=== PATIENT | female | born 1980 | race Caucasian/White ===

== ENCOUNTER 2023-08-08 09:07 | Inpatient (IN) | payer OTHER ==
[2023-08-08] VITALS (15 sets, daily range): BP systolic 98–141; BP diastolic 64–77
[~2023-08-08] VITALS: Ht 165.1 cm; Wt 128.0 kg
[~2023-08-08 09:07] MED LIST: CETI5 PO; LEVSOD100; NAPR220 PO; PSEU120ER PO
[2023-08-08 10:09] LABS: BASOPHILS ABSOLUTE AUTO 0.06 K/mm3 (0.00-0.23); BASOPHILS PERCENT AUTO 0 % (0-2); EOSINOPHILS ABSOLUTE AUTO 0.02 K/mm3 (0.00-0.68); EOSINOPHILS PERCENT AUTO 0 % (0-6); Hemoglobin 8.9 g/dL (11.5-16.0); IMMATURE GRAN ABSOLUTE AUTO 0.45 K/mm3 (0.00-0.10); IMMATURE GRAN PERCENT AUTO 3 % (0-1); LYMPHOCYTES ABSOLUTE AUTO 0.53 K/mm3 (0.84-5.20); LYMPHOCYTES PERCENT AUTO 3 % (21-46); MONOCYTES ABSOLUTE AUTO 1.17 K/mm3 (0.16-1.47); MONOCYTES PERCENT AUTO 6 % (4-13); Mean Corpuscular HGB 31.8 pg (26.0-34.0); Mean Corpuscular Volume 96 fL (80-100); Mean Platelet Volume 9.3 fL (9.1-12.4); NEUTROPHILS ABSOLUTE AUTO 16.03 K/mm3 (1.96-9.15); NEUTROPHILS PERCENT AUTO 88 % (41-73); Platelet Count 181 K/mm3 (150-400); RDW Coefficient Variation 19.6 % (11.7-14.2); RDW Standard Deviation 69.1 fL (35.1-46.3); White Blood Cell Count 18.26 K/mm3 (4.00-11.30)
[2023-08-08 10:43] LABS: Albumin/Globulin Ratio 0.9 (0.8-1.8); Bilirubin, Total 0.4 mg/dL (0.1-1.0); Calcium, Blood 8.7 mg/dL (8.5-10.1); Creatinine, Blood 10.8 mg/dL (0.40-1.00); Globulin, Blood 3.5 g/dL (2.2-4.0); Potassium, Blood 4.4 mmol/L (3.5-5.5); Total Protein, Blood 6.5 g/dL (6.4-8.2)
[2023-08-08 10:47] LABS: Influenza A, PCR NEGATIVE (NEGATIVE); Influenza B, PCR NEGATIVE (NEGATIVE); Resp Syncytial Virus, PCR NEGATIVE (NEGATIVE); SARS-Cov-2 (COVID-19) PCR, MMC NEGATIVE (NEGATIVE)
[2023-08-08 14:23] LABS: Adenovirus Not Detected (NOT DETECT); Coronavirus 229E Not Detected (NOT DETECT); Coronavirus HKU1 Not Detected (NOT DETECT); Coronavirus NL63 Not Detected (NOT DETECT)
[2023-08-08 14:24] LABS: Bordetella pertussis Not Detected (NOT DETECT); Chlamydophila pneumoniae Not Detected (NOT DETECT); Coronavirus OC43 Not Detected (NOT DETECT); Human Metapneumovirus Not Detected (NOT DETECT); Human Rhinovirus/Enterovirus Not Detected (NOT DETECT); Influenza A/2009-H1 Not Detected (NOT DETECT); Influenza A/H1 Not Detected (NOT DETECT); Influenza A/H3 Not Detected (NOT DETECT); Influenza B Not Detected (NOT DETECT); Mycoplasma pneumoniae Not Detected (NOT DETECT); Parainfluenza Virus 1 Not Detected (NOT DETECT); Parainfluenza Virus 2 Not Detected (NOT DETECT); Parainfluenza Virus 3 Not Detected (NOT DETECT); Parainfluenza Virus 4 Not Detected (NOT DETECT); Respiratory Syncytial Virus Not Detected (NOT DETECT); SARS-Cov-2 (COVID-19), BioFire Not Detected (NOT DETECT)
[2023-08-08] MEDS ORDERED: Prednisone10 MG PO (14:32)
[2023-08-08] MEDS ORDERED: SEVEC800 PO (18:36)
[2023-08-09 04:07] VITALS: BP 136/92
--- NOTE | 2023-08-09 04:38 | NUR ---
END OF SHIFT SUMMARY PT CALM AND COOPERATIVE WITH CARE PROVIDED. PT A&O x4. AT THE BEGINNING OF NOC SHIFT, PT'S TEMP WAS 102.0; PRN APAP GIVEN FOR FEVER AND MAY. HOURLY ROUNDING COMPLETED ON PT. PT SLEPT FOR THE MOST OF THE SHIFT. PT ON 2L OF OXYGEN VIA NC. NO SIGNS OF RESP DISTRESS, BREATHES ARE EVEN AND UNLABORED. PT UP AD CARRINGTON IN ROOM, VERY INDEPENDENT WITH ADL's. PT ABLE TO MAKE NEEDS KNOWN. CALL LIGHT WITHIN REACH, WCTM. 0407: PT'S TEMPERATURE WAS 97.5.
[2023-08-09 05:37] LABS: Hematocrit 25.2 % (33.0-51.0); Hemoglobin 8.2 g/dL (11.5-16.0); Mean Corpuscular HGB 31.9 pg (26.0-34.0); Mean Corpuscular HGB Conc 32.5 g/dL (31.5-36.5); Mean Corpuscular Volume 98 fL (80-100); Mean Platelet Volume 9.8 fL (9.1-12.4); Platelet Count 169 K/mm3 (150-400); RDW Coefficient Variation 19.7 % (11.7-14.2); RDW Standard Deviation 70.8 fL (35.1-46.3); Red Blood Cell Count 2.57 M/mm3 (3.80-5.20)
[2023-08-09 06:01] LABS: Albumin, Blood 2.6 g/dL (3.4-5.0); Anion Gap 5 mmol/L (6-16); Blood Urea Nitrogen 40 mg/dL (8-24); Bun/Creatinine Ratio 5.2 (12.0-20.0); CO2, Blood 29 mmol/L (21-32); Calcium, Blood 8.6 mg/dL (8.5-10.1); Chloride, Blood 100 mmol/L (98-108); Creatinine, Blood 7.76 mg/dL (0.40-1.00); Glomerular Filtration Rate 6 (60-); Glucose, Blood 133 mg/dL (70-99); Phosphorus, Blood 4.7 mg/dL (2.5-4.9); Potassium, Blood 4.4 mmol/L (3.5-5.5); Sodium, Blood 134 mmol/L (136-145)
[2023-08-09 06:47] LABS: BASOPHILS PERCENT MAN 0 % (0-2); EOSINOPHILS PERCENT MAN 0 % (0-6); LYMPHOCYTES ABSOLUTE MAN 0.82 K/mm3 (0.84-5.20); LYMPHOCYTES PERCENT MAN 6 % (21-46); METAMYELOCYTE ABSOLUTE MAN 0.13 K/mm3 (0.00-0.00); METAMYELOCYTE PERCENT MAN 1 % (0-0); MONOCYTES ABSOLUTE MAN 0.27 K/mm3 (0.16-1.47); MONOCYTES PERCENT MAN 2 % (4-13); NEUTROPHILS ABSOLUTE MAN 12.55 K/mm3 (1.96-9.15); SEG NEUTROPHILS PERCENT MAN 91 % (41-73); TOTAL CELLS COUNTED 100
[2023-08-09 07:09] VITALS: BP 127/89
[2023-08-09 15:07] LABS: Albumin, Blood 2.8 g/dL (3.4-5.0); Anion Gap 6 mmol/L (6-16); Blood Urea Nitrogen 48 mg/dL (8-24); Bun/Creatinine Ratio 5.7 (12.0-20.0); CO2, Blood 29 mmol/L (21-32); Calcium, Blood 9.1 mg/dL (8.5-10.1); Chloride, Blood 98 mmol/L (98-108); Creatinine, Blood 8.49 mg/dL (0.40-1.00); Glomerular Filtration Rate 6 (60-); Glucose, Blood 142 mg/dL (70-99); Phosphorus, Blood 4.4 mg/dL (2.5-4.9); Potassium, Blood 4.3 mmol/L (3.5-5.5); Sodium, Blood 133 mmol/L (136-145)
[2023-08-09 15:37] VITALS: BP 133/69
--- NOTE | 2023-08-09 16:27 | NUR ---
DAYSHIFT SUMMARY Patient alert & oriented x4, independent in the room. Afebrile this shift, denies N/V/D, and chills. Lab notified RN of positive blood culture- gram + cocci clusters. Notifed Hospitalist & Dr. Campos. Beth stated patient recently had immune modulation therapy and required gram - coverage. Vancomycin & Rocephin IV started this shift. Orders to collect blood cultures from permacath. Unable to obtain sample this shift, will consult with dialysis nurse to collect sample from permacath. Patient reports anuria, small-unmeasured void this am, unable to collect urine for UA culture. Telemetry in place, NSR. No cardiac events this shift. Vitals stable. Will continue plan of care.
[2023-08-09 20:40] VITALS: BP 127/78
[2023-08-10] VITALS (20 sets, daily range): BP systolic 124–172; BP diastolic 68–96
--- NOTE | 2023-08-10 04:34 | NUR ---
END OF SHIFT SUMMARY PT A&O x4. PT KIND AND PLEASANT, COOPERATIVE WITH CARE PROVIDED. BP STABILIZED, AFEBRILE. PT ENCOURAGED TO PUSH FLUIDS, STILL NEED A URINE SAMPLE. DYSURIA PRESENT, PT VOIDED VERY SMALL AMOUNT OF URINE WHICH HAD A RED TINT IN COLOR, NOT ENOUGH FOR A UA. PT WILL CONTINUE TO TRY TO SUPPLY A SAMPLE. PT ON TELEMETRY SINUS RHYTHM IN THE 80'S. PT UP AD CARR[place], INDEPENDENT WITH ALL ADL's. WE NEED A NEW BLOOD CULTURE. PT ABLE TO MAKE NEEDS KNOWN. PT FEELING BETTER, SLEPT WELL OVERNIGHT. CALL LIGHT WITHIN REACH, WCTM.
[2023-08-10 05:35] LABS: BASOPHILS ABSOLUTE AUTO 0.04 K/mm3 (0.00-0.23); BASOPHILS PERCENT AUTO 1 % (0-2); EOSINOPHILS ABSOLUTE AUTO 0.12 K/mm3 (0.00-0.68); EOSINOPHILS PERCENT AUTO 2 % (0-6); Hematocrit 25.3 % (33.0-51.0); Hemoglobin 8.2 g/dL (11.5-16.0); IMMATURE GRAN ABSOLUTE AUTO 0.12 K/mm3 (0.00-0.10); IMMATURE GRAN PERCENT AUTO 2 % (0-1); LYMPHOCYTES ABSOLUTE AUTO 0.87 K/mm3 (0.84-5.20); LYMPHOCYTES PERCENT AUTO 11 % (21-46); MONOCYTES ABSOLUTE AUTO 0.91 K/mm3 (0.16-1.47); MONOCYTES PERCENT AUTO 11 % (4-13); Mean Corpuscular HGB 31.5 pg (26.0-34.0); Mean Corpuscular HGB Conc 32.4 g/dL (31.5-36.5); Mean Corpuscular Volume 97 fL (80-100); Mean Platelet Volume 9.8 fL (9.1-12.4); NEUTROPHILS PERCENT AUTO 75 % (41-73); Platelet Count 157 K/mm3 (150-400); RDW Coefficient Variation 19.2 % (11.7-14.2); RDW Standard Deviation 68.8 fL (35.1-46.3); White Blood Cell Count 8.16 K/mm3 (4.00-11.30)
[2023-08-10 06:03] LABS: Iron Serum 78 ug/dL (50-170); Percent Saturation 44.6 % (15.0-50.0); Total Iron Binding Capacity 175 ug/dL (250-450)
[2023-08-10 06:15] LABS: Albumin, Blood 2.7 g/dL (3.4-5.0); Anion Gap 11 mmol/L (6-16); Blood Urea Nitrogen 63 mg/dL (8-24); Bun/Creatinine Ratio 6.6 (12.0-20.0); CO2, Blood 25 mmol/L (21-32); Calcium, Blood 8.5 mg/dL (8.5-10.1); Chloride, Blood 97 mmol/L (98-108); Glomerular Filtration Rate 5 (60-); Glucose, Blood 101 mg/dL (70-99); Phosphorus, Blood 4.4 mg/dL (2.5-4.9); Potassium, Blood 4.1 mmol/L (3.5-5.5); Sodium, Blood 133 mmol/L (136-145); Vancomycin, Random 42.9 ug/mL
[2023-08-10 09:31] LABS: Vancomycin, Random 30.9 ug/mL
[2023-08-10 12:11] LABS: Source, Urine Straight Cath
[2023-08-10 12:15] LABS: Appearance, Urine Cloudy (Clear); Bilirubin, Urine Neg (Neg); Blood, Urine 5+ (Neg); Color, Urine Brown (P-Yellow); Glucose Qualitative, Urine Neg (Neg); Ketones, Urine Neg (Neg); Leukocyte Esterase, Urine 2+ (Neg); Nitrite, Urine Pos (Neg); Protein, Urine 4+ (Neg); Urobilinogen, Urine NORM (Normal)
[2023-08-10 12:31] LABS: Red Blood Cells, Urine 50-100 /hpf (0-2)
[2023-08-10 12:33] LABS: Bacteria Many /hpf; Squamous Epithelial Cells Many /hpf (Few); Yeast/Fungi Urine Few /hpf
--- NOTE | 2023-08-10 18:08 | NUR ---
SHIFT SUMMARY PT IS ALERT AND ORIENTED X4. INDEPENDENT IN THE ROOM. DIALYSIS TODAY. PERM CATH REMOVED AND SENT FOR CULTURES. NO VANCO TODAY. NO ACUTE EVENTS. PT IS SITTING UP AND EATING DINNER.
[2023-08-11 04:52] VITALS: BP 150/96
[2023-08-11 05:17] LABS: Hematocrit 24.4 % (33.0-51.0); Hemoglobin 7.9 g/dL (11.5-16.0); Mean Corpuscular HGB 31.3 pg (26.0-34.0); Mean Corpuscular HGB Conc 32.4 g/dL (31.5-36.5); Mean Corpuscular Volume 97 fL (80-100); Platelet Count 160 K/mm3 (150-400); RDW Coefficient Variation 18.8 % (11.7-14.2); RDW Standard Deviation 67.4 fL (35.1-46.3); Red Blood Cell Count 2.52 M/mm3 (3.80-5.20); White Blood Cell Count 5.89 K/mm3 (4.00-11.30)
[2023-08-11 05:52] LABS: Albumin, Blood 2.7 g/dL (3.4-5.0); Anion Gap 7 mmol/L (6-16); Blood Urea Nitrogen 48 mg/dL (8-24); Bun/Creatinine Ratio 6.4 (12.0-20.0); CO2, Blood 29 mmol/L (21-32); Calcium, Blood 8.5 mg/dL (8.5-10.1); Chloride, Blood 100 mmol/L (98-108); Creatinine, Blood 7.49 mg/dL (0.40-1.00); Glomerular Filtration Rate 6 (60-); Glucose, Blood 96 mg/dL (70-99); Phosphorus, Blood 3.3 mg/dL (2.5-4.9); Potassium, Blood 4.1 mmol/L (3.5-5.5); Sodium, Blood 136 mmol/L (136-145); Vancomycin, Random 26.9 ug/mL
[2023-08-11 06:00] LABS: BAND PERCENT MAN 1 % (0-8); BASOPHILS ABSOLUTE MAN 0.17 K/mm3 (0.00-0.23); BASOPHILS PERCENT MAN 3 % (0-2); EOSINOPHILS ABSOLUTE MAN 0.11 K/mm3 (0.00-0.68); EOSINOPHILS PERCENT MAN 2 % (0-6); LYMPHOCYTES % ATYPICAL MANUAL 4 % (0-0); LYMPHOCYTES ABSOLUTE MAN 1.53 K/mm3 (0.84-5.20); LYMPHOCYTES PERCENT MAN 22 % (21-46); MONOCYTES ABSOLUTE MAN 0.35 K/mm3 (0.16-1.47); MONOCYTES PERCENT MAN 6 % (4-13); NEUTROPHILS ABSOLUTE MAN 3.71 K/mm3 (1.96-9.15); SEG NEUTROPHILS PERCENT MAN 62 % (41-73); TOTAL CELLS COUNTED 100
--- NOTE | 2023-08-11 06:47 | NUR ---
UNEVENTFUL NIGHT. PT IS AOX4, UP AD CARRINGTON, FEELING IMPROVED COMPARED TO ADMISSION STATUS. NO ACUTE CHANGES NOTED. FIRE SAFETY REVIEWED.
[2023-08-11 07:36] VITALS: BP 151/96
[2023-08-11 15:32] VITALS: BP 170/114
--- NOTE | 2023-08-11 15:46 | NUR ---
PT BP 170/114. NON SYMPTOMATIC. DR PEREYRA NOTIFIED AND WILL PUT ORDER IN FOR BP MANAGEMENT.
[2023-08-11 17:17] VITALS: BP 156/113
--- NOTE | 2023-08-11 17:45 | NUR ---
SHIFT SUMMARY PT IS ALERT AND ORIENTED X4. PLEASANT AND ABLE TO EXPRESS NEEDS. PT DENIES PAIN OTHER THAN A HEADACHE THIS MORNING. TREATED PER EMAR. 5O CC URINE OUTPUT THIS MORNING. BP ELEVATED THIS AFTERNOON. TREATED PER EMAR. PT IS INDEPENDENT IN ROOM, R/A.
--- NOTE | 2023-08-11 18:27 | NUR ---
CALLED TO PT BEDSIDE. PT IS SHIVERING, FEELS COLD AND C/O NAUSEA. SHE STATED THAT IT HIT SUDDENLY WHILE EATING. TREATED WITH TYLENOL AND ZOFRAN.
[2023-08-11 19:40] VITALS: BP 150/90
[2023-08-12 04:39] VITALS: BP 164/104
--- NOTE | 2023-08-12 05:01 | NUR ---
NO ACUTE CHANGES NOTED. PT REQUESTED TYLENOL FOR MAY PAIN. IV WAS LEAKING SO IT WAS REPLACED. BETTIE PLACED THE NEW IV WITH ULTRA SOUND MACHINE. HYPERTENSIVE OTHERWISE VSS ON RA, UP AD CARRINGTON, PLEASANT. FIRE SAFETY REVIEWED.
[2023-08-12 07:23] VITALS: BP 187/129
[2023-08-12 14:11] VITALS: BP 156/99
[2023-08-12 15:27] VITALS: BP 156/97
[2023-08-12 17:14] VITALS: BP 160/98
--- NOTE | 2023-08-12 17:23 | NUR ---
SHIFT SUMMARY PT A&OX4, COOPERATIVE, AMB INDEPENDENTLY, VOIDING, AND TOLERATING PO. BP REMAINED ELEVATED T/O SHIFT AND WAS MEDICATED PER EMAR. PT ASYMPTOMATIC. OLD R [facility] DRESSING CDI AND REMAINS W/O S/SX OF INFECTION. PT DENIES PAIN. PT PLAN TO BE NPO AFTER MIDNIGHT AND HAVE NEW PLACEMENT OF DIALYSIS CVC. PT CALLS APPROPRIATELY AND CALL LIGHT IS WITHIN REACH. WILL CONTINUE TO MONITOR FOR CHANGES UNTIL END OF SHIFT AND REPORT TO THE ONCOMING RN.
--- NOTE | 2023-08-12 18:40 | NUR ---
THIS MANAGER PROCUREMENT HAS REVIEWED AND AGREES WITH ALL NOTES AND ASSESSMENTS BY WINTER DRUMMOND.
[2023-08-12 21:11] VITALS: BP 168/108
[2023-08-13] VITALS (30 sets, daily range): BP systolic 126–206; BP diastolic 58–116
--- NOTE | 2023-08-13 04:54 | NUR ---
SHIFT SUMMARY NOC PT A/O X 4. PLEASANT AND COOPERATIVE WITH CARE. NO ACUTE CHANGES TO REPORT. PT NPO IN ANTICIPATION OF SURGERY FOR PERMACATH PLACMENT FOR DIALYSIS TODAY. PT AM BP WAS ELEVATED AND PRN HYDRALAZINE GIVEN. PT ON TELE RUNNING SINUS RHYTHM @ 68 BPM. PT IS CURRENTLY RESTING WITH BED IN LOWEST POSITION, AND CALL LIGHT WITHIN REACH.
[2023-08-13 08:33] LABS: BASOPHILS ABSOLUTE AUTO 0.06 K/mm3 (0.00-0.23); BASOPHILS PERCENT AUTO 1 % (0-2); EOSINOPHILS ABSOLUTE AUTO 0.15 K/mm3 (0.00-0.68); EOSINOPHILS PERCENT AUTO 2 % (0-6); Hematocrit 24.2 % (33.0-51.0); Hemoglobin 8.1 g/dL (11.5-16.0); IMMATURE GRAN PERCENT AUTO 3 % (0-1); LYMPHOCYTES ABSOLUTE AUTO 1.78 K/mm3 (0.84-5.20); LYMPHOCYTES PERCENT AUTO 23 % (21-46); MONOCYTES ABSOLUTE AUTO 0.94 K/mm3 (0.16-1.47); MONOCYTES PERCENT AUTO 12 % (4-13); Mean Corpuscular HGB 31.6 pg (26.0-34.0); Mean Corpuscular HGB Conc 33.5 g/dL (31.5-36.5); Mean Corpuscular Volume 95 fL (80-100); Mean Platelet Volume 9.7 fL (9.1-12.4); NEUTROPHILS ABSOLUTE AUTO 4.51 K/mm3 (1.96-9.15); NEUTROPHILS PERCENT AUTO 59 % (41-73); Platelet Count 212 K/mm3 (150-400); RDW Coefficient Variation 18.3 % (11.7-14.2); RDW Standard Deviation 63.2 fL (35.1-46.3); Red Blood Cell Count 2.56 M/mm3 (3.80-5.20); White Blood Cell Count 7.64 K/mm3 (4.00-11.30)
[2023-08-13 09:06] LABS: Magnesium, Blood 2.5 mg/dL (1.6-2.4)
[2023-08-13 09:24] LABS: Bun/Creatinine Ratio 7.4 (12.0-20.0); Calcium, Blood 8.7 mg/dL (8.5-10.1); Creatinine, Blood 12.1 mg/dL (0.40-1.00); Phosphorus, Blood 4.6 mg/dL (2.5-4.9); Potassium, Blood 4.2 mmol/L (3.5-5.5)
--- NOTE | 2023-08-13 10:55 | NUR ---
CENTRAL TELEMETRY MONITORING REMOVED FOR SURGERY. GUM ROLLING MACHINE OPERATOR NOTIFIED.
--- NOTE | 2023-08-13 11:22 | NUR ---
PATIENT'S EARINGS LEFT ON NIGHTSTAND BY PATIENT IN PATIENT'S ROOM.
--- NOTE | 2023-08-13 11:56 | NUR ---
08/13/23 1156 Conrad Jay I 2.1 CC OF 5,000 UNITS/ML OF HEPARIN INSTILLED IN EACH LUMEN OF PERMACATH FOR A TOTAL OF 4.2 CC ([id number] UNITS).
--- NOTE | 2023-08-13 13:16 | NUR ---
LATE ENTRY:PER DR. COOPER RADIOLOGIST, PORT NEEDS TO BE ADJUSTED, DR CLAUDIO NOTIFIED. DR CLAUDIO IN PACU TO DISCUSS PLACEMENT FINDINGS WITH PATIENT. PT WILL RETURN TO OR WITH ANESTHESIA.
--- NOTE | 2023-08-13 16:42 | NUR ---
SHIFT SUMMARY PT A&OX4, COOPERATIVE, AMB INDEPENDENTLY, VOIDING, AND TOLERATING PO. BP REMAINED ELEVATED T/O SHIFT AND WAS MEDICATER PER EMAR. PT ASYMPTOMATIC. OLD [facility] NO S/SX OF INFECTION. NEW L [facility] DRESSING CDI. PT RECEIVED DIALYSIS TX AFTER RETURNING FROM THE OR THIS AFTERNOON AND PLAN IS TO BE DISCHARGED THIS EVENING AFTER DIALYSIS TX IS COMPLETED. PT CALLS APPROPRIATELY AND CALL LIGHT IS WITHIN REACH. WILL CONTINUE TO MONITOR FOR CHANGES UNTIL END OF SHIFT AND REPORT TO THE ONCOMING RN.
[2023-08-13] MEDS ORDERED: SEVEC800 PO ×2 (17:57→18:01)
[2023-08-13] MEDS ORDERED: VISBIOME 112.51 EACH PO (18:05)
[2023-08-13] MEDS ORDERED: Hydrocodone-Ap1 EA26 PO (18:08)
[2023-08-13] MEDS ORDERED: HYDRA50 PO (18:09)
[2023-08-13] MEDS ORDERED: CEFAZOLIN2 GM/50 M3 IV (18:12)
[2023-08-13] MEDS ORDERED: CARV6.25 PO (18:12)
[2023-08-13] MEDS ORDERED: B COMPLEX FORM0.4 MG PO (18:16)
[2023-08-13] MEDS ORDERED: AMLO5 PO (18:16)
[2023-08-13] MEDS ORDERED: ACET325 PO (18:17)
--- NOTE | 2023-08-13 18:42 | NUR ---
DISCHARGE NOTE PT PROVIDED WITH VERBAL AND WRITTEN INSTRUCTIONS AND HARD SCRIP OF NORCO AT 1830 AND REPORTED UNDERSTANDING. PT A&OX4, VOIDING, TOLERATING PO, PAIN MANAGED PER EMAR, AND AMB INDEPENDENTLY. BP REMAINS ELEVATED, MEDICATED PER EMAR, AND ASYMPTOMATIC. PT PLAN TO FINISH RECEIVING DIALYSIS TX AND BP AND PAIN MEDS, ANTIBIOTICS BEFORE BEING ESCOURTED OUT BY SCOURING TRAIN OPERATOR CHIEF STAFF.
== END 2023-08-13 20:26 | disposition home or self-care (01) | DRG 314 ==
LOC: ER 09:07 → MEDS 13:00
PROVIDERS: Hospitalist; Internal Medicine; Student in an Organized Health Care Education/Training Program; Surgery; ADMIT Family Medicine
PROC: 3E03329 Introduction of Other Anti-infective into Peripheral Vein, Percutaneous Approach (ICD-10-PCS; 2023-08-09)
PROC: 5A1D70Z Performance of Urinary Filtration, Intermittent, Less than 6 Hours Per Day (ICD-10-PCS; 2023-08-11)
PROC: B518ZZA Fluoroscopy of Superior Vena Cava, Guidance (ICD-10-PCS; 2023-08-13)
PROC: B548ZZA Ultrasonography of Superior Vena Cava, Guidance (ICD-10-PCS; 2023-08-13)
PROC: 02PYX3Z Removal of Infusion Device from Great Vessel, External Approach (ICD-10-PCS; 2023-08-13)
PROC: 02HV33Z Insertion of Infusion Device into Superior Vena Cava, Percutaneous Approach (ICD-10-PCS; principal; 2023-08-13 11:00)
DX: T80.211A Bloodstream infection due to central venous catheter, initial encounter (principal); A41.01 Sepsis due to Methicillin susceptible Staphylococcus aureus; N18.6 End stage renal disease; E87.1 Hypo-osmolality and hyponatremia; Z68.42 Body mass index [BMI] 45.0-49.9, adult; N25.81 Secondary hyperparathyroidism of renal origin; M31.0 Hypersensitivity angiitis; I12.0 Hypertensive chronic kidney disease with stage 5 chronic kidney disease or end stage renal disease; K52.9 Noninfective gastroenteritis and colitis, unspecified; E66.9 Obesity, unspecified; D63.1 Anemia in chronic kidney disease; I95.9 Hypotension, unspecified; Z20.822 Contact with and (suspected) exposure to COVID-19; Z88.8 Allergy status to other drugs, medicaments and biological substances; Z79.899 Other long term (current) drug therapy; Z99.2 Dependence on renal dialysis; Z90.49 Acquired absence of other specified parts of digestive tract
CPT/HCPCS: 0202U; 0241U; 36415; 71045; 77001; 80048; 80053; 80069; 80202; 81001; 83540; 83550; 83605; 83735; 84100; 84145; 85025; 87040; 87070; 87077; 87086; 87147; 87186; 93005; 93010; 93306; 96361; 96372; 96374; 96375; 99285-25; A9270; C1750; G0378; J0690; J0696; J1642; J1644; J2001; J2250; J2405; J2704; J2795; J3010; J3370; J7030; J7050; J7512; Q5106

== ENCOUNTER 2023-09-21 16:18 | Inpatient (IN) | payer OTHER ==
[~2023-09-21] VITALS: Ht 165.1 cm; Wt 132.0 kg
[~2023-09-21 16:18] MED LIST changes: +ACET325 PO; +AMLO5 PO; +B COMPLEX FORM0.4 MG PO; +CARV6.25 PO; +CEFAZOLIN2 GM/50 M3 IV; +HYDRA50 PO; +Hydrocodone-Ap1 EA26 PO; +Prednisone10 MG PO; +SEVEC800 PO; +VISBIOME 112.51 EACH PO
[2023-09-21 16:53] LABS: BASOPHILS ABSOLUTE AUTO 0.04 K/mm3 (0.00-0.23); BASOPHILS PERCENT AUTO 0 % (0-2); EOSINOPHILS ABSOLUTE AUTO 0.06 K/mm3 (0.00-0.68); EOSINOPHILS PERCENT AUTO 0 % (0-6); Hematocrit 35.3 % (33.0-51.0); Hemoglobin 11.3 g/dL (11.5-16.0); IMMATURE GRAN ABSOLUTE AUTO 0.06 K/mm3 (0.00-0.10); IMMATURE GRAN PERCENT AUTO 0 % (0-1); LYMPHOCYTES ABSOLUTE AUTO 0.32 K/mm3 (0.84-5.20); LYMPHOCYTES PERCENT AUTO 2 % (21-46); MONOCYTES ABSOLUTE AUTO 0.33 K/mm3 (0.16-1.47); MONOCYTES PERCENT AUTO 2 % (4-13); Mean Corpuscular HGB 31.8 pg (26.0-34.0); Mean Corpuscular Volume 99 fL (80-100); Mean Platelet Volume 9.6 fL (9.1-12.4); NEUTROPHILS ABSOLUTE AUTO 14.77 K/mm3 (1.96-9.15); NEUTROPHILS PERCENT AUTO 95 % (41-73); Platelet Count 261 K/mm3 (150-400); RDW Coefficient Variation 14.6 % (11.7-14.2); RDW Standard Deviation 53.3 fL (35.1-46.3); Red Blood Cell Count 3.55 M/mm3 (3.80-5.20); White Blood Cell Count 15.58 K/mm3 (4.00-11.30)
[2023-09-21] MEDS ORDERED: Rena-Vite Tabl0.8 MG PO (17:11)
[2023-09-21 17:20] LABS: Albumin, Blood 3.4 g/dL (3.4-5.0); Albumin/Globulin Ratio 0.8 (0.8-1.8); Bilirubin, Total 0.4 mg/dL (0.1-1.0); Bun/Creatinine Ratio 3.4 (12.0-20.0); Calcium, Blood 9.2 mg/dL (8.5-10.1); Creatinine, Blood 10.9 mg/dL (0.40-1.00); Globulin, Blood 4.1 g/dL (2.2-4.0); Potassium, Blood 4.5 mmol/L (3.5-5.5); Total Protein, Blood 7.5 g/dL (6.4-8.2)
[2023-09-21 18:35] LABS: Influenza A, PCR NEGATIVE (NEGATIVE); Influenza B, PCR NEGATIVE (NEGATIVE); Resp Syncytial Virus, PCR NEGATIVE (NEGATIVE); SARS-Cov-2 (COVID-19) PCR, MMC NEGATIVE (NEGATIVE)
[2023-09-21 20:50] VITALS: BP 146/90
[2023-09-21] MEDS ORDERED: ONDA4 (21:01)
[2023-09-22] VITALS (9 sets, daily range): BP systolic 105–155; BP diastolic 32–91
--- NOTE | 2023-09-22 03:38 | NUR ---
SHIFT SUMMARY. PT ARRIVED ON UNIT EARLY IN SHIFT. AOX4, PLEASANT, COOPERATIVE WITH CARE. INDEPENDENT WITHIN ROOM. DIET CHANGED FROM RENAL TO NPO EARLY THIS MORNING. HAS BEEN NPO SINCE. FLUIDS RUNNING PER ORDER. PT HAD CONCERN ON ADMISSION OF POSSIBLE SLEEP APNEA AND SUSBEQUENT DESATURATION WHILE SLEEPING. CALLED TO NOTIFY HOSPITALIST DR. JETT WHO ORDERED CONTINUOUS PULSE OX TO BE PUT IN PLACE. CONTINUOUS PULSE OX HAS SHOWN DESATURATION SPORADICALLY WHILE SLEEPING. O2 PUT IN PLACE, ORDER ENTERED BY RT RADHA RODRIGUEZ. ENCOURAGED TO NOTIFY PHYSICIAN DURING ROUNDS. PT HAS HAD ONE LOOSE BM THIS SHIFT THUS FAR. NO VOMITING. PT USES CALL LIGHT APPROPRIATELY AND IS ABLE TO MAKE NEEDS KNOWN. BED LOCKED IN LOWEST POSITION. CALL LIGHT LEFT WITHIN REACH
[2023-09-22 04:53] LABS: BASOPHILS ABSOLUTE AUTO 0.07 K/mm3 (0.00-0.23); BASOPHILS PERCENT AUTO 0 % (0-2); EOSINOPHILS PERCENT AUTO 0 % (0-6); Hematocrit 30.8 % (33.0-51.0); Hemoglobin 9.7 g/dL (11.5-16.0); IMMATURE GRAN PERCENT AUTO 1 % (0-1); LYMPHOCYTES ABSOLUTE AUTO 0.54 K/mm3 (0.84-5.20); LYMPHOCYTES PERCENT AUTO 3 % (21-46); MONOCYTES ABSOLUTE AUTO 0.99 K/mm3 (0.16-1.47); MONOCYTES PERCENT AUTO 5 % (4-13); Mean Corpuscular HGB 31.8 pg (26.0-34.0); Mean Corpuscular HGB Conc 31.5 g/dL (31.5-36.5); Mean Corpuscular Volume 101 fL (80-100); NEUTROPHILS ABSOLUTE AUTO 18.22 K/mm3 (1.96-9.15); NEUTROPHILS PERCENT AUTO 91 % (41-73); Platelet Count 217 K/mm3 (150-400); RDW Coefficient Variation 15.2 % (11.7-14.2); RDW Standard Deviation 56.3 fL (35.1-46.3); Red Blood Cell Count 3.05 M/mm3 (3.80-5.20); White Blood Cell Count 19.92 K/mm3 (4.00-11.30)
[2023-09-22 05:48] LABS: Albumin, Blood 2.8 g/dL (3.4-5.0); Anion Gap 8 mmol/L (6-16); Blood Urea Nitrogen 43 mg/dL (8-24); CO2, Blood 25 mmol/L (21-32); Calcium, Blood 8.6 mg/dL (8.5-10.1); Chloride, Blood 103 mmol/L (98-108); Glucose, Blood 123 mg/dL (70-99); Phosphorus, Blood 4.7 mg/dL (2.5-4.9); Potassium, Blood 4.8 mmol/L (3.5-5.5); Sodium, Blood 136 mmol/L (136-145)
[2023-09-22 05:50] LABS: Bun/Creatinine Ratio 3.7 (12.0-20.0); Glomerular Filtration Rate 4 (60-)
[2023-09-22 10:44] LABS: Adenovirus F 40/41 Not Detected (NOT DETECT); Astrovirus Not Detected (NOT DETECT); Campylobacter Sp Not Detected (NOT DETECT); Cryptosporidium Not Detected (NOT DETECT); Cyclospora Cayetanensis Not Detected (NOT DETECT); E. Coli O157 Not Detected (NOT DETECT); Entamoeba Histolytica Not Detected (NOT DETECT); Enteroaggregative E. coli-EAEC Not Detected (NOT DETECT); Enteropathogenic E. coli-EPEC Detected (NOT DETECT); Enterotoxigenic E. coli-ETEC Not Detected (NOT DETECT); Giardia Lamblia Not Detected (NOT DETECT); Norovirus GI/GII Not Detected (NOT DETECT); Plesiomonas Shigelloides Not Detected (NOT DETECT); Rotavirus A Not Detected (NOT DETECT); Salmonella Sp Not Detected (NOT DETECT); Sapovirus Not Detected (NOT DETECT); Shiga Toxin-prod E. coli-STEC Not Detected (NOT DETECT); Shigella/Enteroin E. coli-EIEC Not Detected (NOT DETECT); Vibrio Cholerae Not Detected (NOT DETECT); Vibrio Sp Not Detected (NOT DETECT); Yersinia Enterocolitica Not Detected (NOT DETECT)
[2023-09-22 12:33] LABS: Vancomycin, Random 27.5 ug/mL
--- NOTE | 2023-09-22 17:01 | NUR ---
SUMMARY- PT A/O X4, INDEPENDANT IN ROOM. PT HAVING INTERMITTANT FEVERS AND FEELS GENERALLY UNWELL. HAD CHILLS ON/OFF T/O THE DAY. STATES JOINTS ACHE. WENT TO HAVE DIALYSIS TODAY AT 1100 AND RN FOUND RIJ CUFF EXPOSED. CATH WOULDN'T MAINTIAN ENOUGH FLOW TO PERFORM DIALYSIS. OBTAINED CONSULT FOR Asa SIERRA DR COVERING AND CAME TO EVAL PT AT BEDSIDE AT 1130. PLAN TO EXCHANGE TDC OR NEW TDC PLACEMENT ON RIGHT. PT TO BE NPO AFTER MIDNIGHT AND HOLD LOVENOX IN AM. PT HAD TYLENOL X2 TODAY, HELPED WITH FEVER AND GEN BODY ACHES. TOLERATING SIPA OF CLEARS. IVF INFUSING. NAUSEA COMES IN WAVES AND SUBSIDED. MEDICATED ONCE WITH ZOFTAN. HAVING LOOSE BM APPROX 3X TODAY. YELLOW AND MUCOUSEY. SENT SPEC FOR GI PANAL. SHOWING POS FOR ECOLI, DO NOT NEED TO ISOLATE. WILL REPORT ALL TO NOC WINTER
[2023-09-23] VITALS (14 sets, daily range): BP systolic 124–151; BP diastolic 75–88
--- NOTE | 2023-09-23 04:31 | NUR ---
SHIFT SUMMARY. PT IS AOX4, PLEASANT, COOPERATIVE WITH CARE. INDEPENDENT WITHIN ROOM. CALLS APPROPRIATELY AND IS ABLE TO MAKE NEEDS KNOWN. PT WAS COMPLAINING OF SOME NAUSEA AND VOMITING EARLY IN SHIFT WHICH HAS BEEN MANAGED VIA PRN REGLAN ORDERED BY HOSPITALIST CASSY PRN ZOFRAN WAS INSUFFICIENT. PT HAD VERY MILDLY ELEVATED TEMP OF 100.3 ON NIGHT TIME VITALS THAT HAS BEEN LOWERED VIA PRN TYLENOL AND HAS REMAINED <100 FOR REMAINDER OF SHIFT THUS FAR. PT IS SOMEWHAT ANXIOUS BUT REMAINS PLEASANT AND COOPERATIVE WITH CARE. SATTING WELL ON 2 L O2 WHILE SLEEPING. SATS WELL ON ROOM AIR WHILE AWAKE. BED LOCKED IN LOWEST POSITION. CALL LIGHT LEFT WITHIN REACH.
[2023-09-23 04:50] LABS: Hematocrit 28.4 % (33.0-51.0); Hemoglobin 9.2 g/dL (11.5-16.0); Mean Corpuscular HGB 32.1 pg (26.0-34.0); Mean Corpuscular HGB Conc 32.4 g/dL (31.5-36.5); Mean Corpuscular Volume 99 fL (80-100); Platelet Count 178 K/mm3 (150-400); RDW Coefficient Variation 15.2 % (11.7-14.2); RDW Standard Deviation 55.4 fL (35.1-46.3); Red Blood Cell Count 2.87 M/mm3 (3.80-5.20); White Blood Cell Count 11.44 K/mm3 (4.00-11.30)
[2023-09-23 06:12] LABS: Albumin, Blood 2.8 g/dL (3.4-5.0); Albumin/Globulin Ratio 0.8 (0.8-1.8); Bilirubin, Total 0.4 mg/dL (0.1-1.0); Globulin, Blood 3.7 g/dL (2.2-4.0); Potassium, Blood 4.4 mmol/L (3.5-5.5); Total Protein, Blood 6.5 g/dL (6.4-8.2)
[2023-09-23 06:14] LABS: Creatinine, Blood 12.6 mg/dL (0.40-1.00)
[2023-09-23 10:36] LABS: Vancomycin, Random 23.6 ug/mL
--- NOTE | 2023-09-23 16:58 | NUR ---
SHIFT SUMMARY PT A&OX4. VSS. PT DIALYSIS CATHETER REPLACED AND RECEIVED DIALYSIS TODAY. PT RESPONDED WELL TO THE TREATMENT AND VERBALIZES FEELING AN IMPROVEMENT. NO ACUTE EVENTS AT THIS TIME. PT LEFT IN A POSITION OF SAFETY WITH BED LOCKED AND IN LOWEST POSITION, ROOM FREE OF DEBRIS, NONSKID SOCKS IN PLACE, AND CALL LIGHT WITHIN REACH.
[2023-09-24] VITALS (15 sets, daily range): BP systolic 130–161; BP diastolic 78–103
[2023-09-24 05:09] LABS: Hematocrit 29.4 % (33.0-51.0); Hemoglobin 9.2 g/dL (11.5-16.0); Mean Corpuscular HGB 31.4 pg (26.0-34.0); Mean Corpuscular HGB Conc 31.3 g/dL (31.5-36.5); Mean Corpuscular Volume 100 fL (80-100); Mean Platelet Volume 10.6 fL (9.1-12.4); Platelet Count 188 K/mm3 (150-400); RDW Coefficient Variation 14.9 % (11.7-14.2); RDW Standard Deviation 55.9 fL (35.1-46.3); Red Blood Cell Count 2.93 M/mm3 (3.80-5.20); White Blood Cell Count 7.53 K/mm3 (4.00-11.30)
--- NOTE | 2023-09-24 05:21 | NUR ---
SUMMARY PT RESTING QUIETLY IN BED, WAKES EASILY, PT INDEP IN THE ROOM, PT WITH PERMACATH TO THE L CHEST WALL, SITE IS CLEAN AND DRY, PT MED PER EMAR FOR HEADACHE AND NAUSEA, PT HOPEFUL TO DC HOME TODAY AFTER DIALYSIS, VSS, WILL CONTINUE TO MONITOR
[2023-09-24 07:04] LABS: Albumin, Blood 3.5 g/dL (3.4-5.0); Anion Gap 12 mmol/L (6-16); Blood Urea Nitrogen 44 mg/dL (8-24); Bun/Creatinine Ratio 4.1 (12.0-20.0); CO2, Blood 24 mmol/L (21-32); Calcium, Blood 8.8 mg/dL (8.5-10.1); Chloride, Blood 99 mmol/L (98-108); Glomerular Filtration Rate 4 (60-); Glucose, Blood 126 mg/dL (70-99); Phosphorus, Blood 4.7 mg/dL (2.5-4.9); Potassium, Blood 3.6 mmol/L (3.5-5.5); Sodium, Blood 135 mmol/L (136-145)
[2023-09-24 13:12] LABS: Vancomycin, Random 19.3 ug/mL
--- NOTE | 2023-09-24 18:05 | NUR ---
SHIFT SUMMARY PT A&OX4 AND CALLS APPROPRIATELY. PT RECEIVED DIALYSIS EARLIER TODAY AND RESPONDED WELL TO TREATMENT. DIALYSIS PORT SITE EXHIBITS MINOR SWELLING FROM INSERTION. VSS. NO ACUTE EVENTS DURING SHIFT. PT INDEPENDENT IN ROOM. PT LEFT IN A POSITION OF SAFETY WITH BED LOCKED AND IN LOWEST POSITION, NONSKID SOCKS IN PLACE, AND CALL LIGHT WITHIN REACH.
[2023-09-25 02:35] VITALS: BP 144/89
--- NOTE | 2023-09-25 05:06 | NUR ---
SUMMARY PT RESTING QUIETLY, WAKES EASILY, STATES SHE DID NOT SLEEP WELL, MED PER EMAR FOR HEADACHE, INDEP IN THE ROOM, PT HOPEFUL TO DC HOME TODAY, VSS, WILL CONT TO MONITOR
[2023-09-25 06:58] LABS: Albumin, Blood 3.3 g/dL (3.4-5.0); Anion Gap 8 mmol/L (6-16); Blood Urea Nitrogen 48 mg/dL (8-24); Bun/Creatinine Ratio 5.1 (12.0-20.0); CO2, Blood 27 mmol/L (21-32); Calcium, Blood 9.2 mg/dL (8.5-10.1); Chloride, Blood 98 mmol/L (98-108); Creatinine, Blood 9.44 mg/dL (0.40-1.00); Glomerular Filtration Rate 5 (60-); Glucose, Blood 107 mg/dL (70-99); Phosphorus, Blood 5.1 mg/dL (2.5-4.9); Potassium, Blood 3.5 mmol/L (3.5-5.5); Sodium, Blood 133 mmol/L (136-145)
[2023-09-25 07:39] VITALS: BP 151/92
[2023-09-25] MEDS ORDERED: VISBIOME 112.51 EACH PO (11:48)
[2023-09-25] MEDS ORDERED: CEFAZOLIN2 GM/50 M3 IV (11:49)
--- NOTE | 2023-09-25 16:36 | NUR ---
DISCHARGE- PATIENT STATED UNDERSTANDING OF INSTRUCTION, MEDICATIONS, AND FOLLOW UP, PATIENT DENIED FUHTER QUESTIONS, PATIENT DENIED SOB NV EMESIS OR DIARRHEA, PATIENT HAPPY TO GO HOME, TO HAVE IV ANTIBIOTICS WITH HD, LEFT VIA W/C
== END 2023-09-25 16:23 | disposition home or self-care (01) | DRG 314 ==
LOC: ER 16:18 → MEDS 19:04 → ENPENDDIS 09-25 10:41 → MEDS 09-25 16:23
PROVIDERS: Internal Medicine; Student in an Organized Health Care Education/Training Program; ADMIT Student in an Organized Health Care Education/Training Program
PROC: 5A1D70Z Performance of Urinary Filtration, Intermittent, Less than 6 Hours Per Day (ICD-10-PCS; 2023-09-21)
PROC: 3E03329 Introduction of Other Anti-infective into Peripheral Vein, Percutaneous Approach (ICD-10-PCS; 2023-09-21)
PROC: 0J2TXYZ Change Other Device in Trunk Subcutaneous Tissue and Fascia, External Approach (ICD-10-PCS; principal; 2023-09-23)
DX: T82.7XXA Infection and inflammatory reaction due to other cardiac and vascular devices, implants and grafts, initial encounter (principal); A41.01 Sepsis due to Methicillin susceptible Staphylococcus aureus; N18.6 End stage renal disease; I12.0 Hypertensive chronic kidney disease with stage 5 chronic kidney disease or end stage renal disease; A04.0 Enteropathogenic Escherichia coli infection; E87.1 Hypo-osmolality and hyponatremia; M31.0 Hypersensitivity angiitis; Z68.42 Body mass index [BMI] 45.0-49.9, adult; Y83.8 Other surgical procedures as the cause of abnormal reaction of the patient, or of later complication, without mention of misadventure at the time of the procedure; E66.9 Obesity, unspecified; E83.39 Other disorders of phosphorus metabolism; R74.01 Elevation of levels of liver transaminase levels; Z99.2 Dependence on renal dialysis; Z91.048 Other nonmedicinal substance allergy status; D63.1 Anemia in chronic kidney disease; Z90.49 Acquired absence of other specified parts of digestive tract; Z98.890 Other specified postprocedural states; Z79.899 Other long term (current) drug therapy; Z11.52 Encounter for screening for COVID-19
CPT/HCPCS: 0241U; 36415; 80053; 80069; 80202; 83605; 85025; 85027; 87040; 87077; 87147; 87186; 87507; 93005; 93010; 93308; 93321; 94762; 96365; 96366; 96367; 99152; 99153; 99285-25; A9270; C1750; C1769; J0692; J0696; J1644; J2250; J2405; J2765; J2997; J3010; J3370; J7030; J7050; P9047

== ENCOUNTER → 2023-12-24 | Outpatient (CLI) | payer MEDICARE, OTHER ==
[~2023-12-24] MED LIST changes: +CARV3.125 PO; +ONDA4; +Percocet 5-3251 EACH PO; +ROPINIROLE HC0.2510 PO; +Rena-Vite Tabl0.8 MG PO
== END ==
LOC: LAB 13:52 → LAB SHORT 13:52
DX: N39.0 Urinary tract infection, site not specified (principal)
CPT/HCPCS: 87086

== ENCOUNTER → 2024-03-07 | Outpatient (CLI) | payer MEDICARE, OTHER ==
[2024-03-07 16:31] LABS: Bacterial Vaginosis PCR Negative (NEGATIVE); Candida Group, PCR NOT DETECTED (NOT DETECT); Candida glabrata-krusei, PCR NOT DETECTED (NOT DETECT)
== END ==
LOC: LAB 13:54 → LAB SHORT 13:54
PROVIDERS: Advanced Practice Midwife
DX: N76.0 Acute vaginitis (principal)
CPT/HCPCS: 87481; 87661; 87801

== ENCOUNTER → 2024-03-22 | Outpatient (CLI) | payer MEDICARE, OTHER | END | disposition home or self-care (01) | LOC: LAB SHORT 17:37 → LAB 17:37 | DX: R30.0 Dysuria (principal) | CPT/HCPCS: 87086 ==

== ENCOUNTER 2025-11-06 02:16 | Inpatient (IN) | payer MEDICARE, OTHER ==
[~2025-11-06] VITALS: Ht 167.6 cm; Wt 126.5 kg
[2025-11-06] MEDS ORDERED: NEURONTIN300 MG PO (02:43)
[2025-11-06] MEDS ORDERED: LISI20 PO (02:43)
[2025-11-06] MEDS ORDERED: ZEPBOUND2.5 MG/0.5 SQ (02:43)
[2025-11-06] MEDS ORDERED: EUTHYROX175 MC1 PO (02:43)
[2025-11-06] MEDS ORDERED: TOPI25 PO (02:43)
[2025-11-06] MEDS ORDERED: SEVEC800 PO (02:44)
[2025-11-06] MEDS ORDERED: XPHOZAH PO (02:46)
[2025-11-06 03:16] LABS: Hematocrit 41.1 % (33.0-51.0); Hemoglobin 13.2 g/dL (11.5-16.0); Mean Corpuscular HGB Conc 32.1 g/dL (31.5-36.5); Mean Corpuscular Volume 95 fL (80-100); NRBC ABSOLUTE 0.00 K/mm3 (0.00-0.02); NRBC Auto 0.0 /100 WBC (0.0-0.2); Platelet Count 311 K/mm3 (150-400); RDW Coefficient Variation 14.5 % (11.7-14.2); RDW Standard Deviation 50.4 fL (35.1-46.3)
[2025-11-06 03:33] LABS: BAND PERCENT MAN 8 % (0-8); BASOPHILS ABSOLUTE MAN 0.00 K/mm3 (0.00-0.23); BASOPHILS PERCENT MAN 0 % (0-2); EOSINOPHILS ABSOLUTE MAN 0.00 K/mm3 (0.00-0.68); EOSINOPHILS PERCENT MAN 0 % (0-6); LYMPHOCYTES ABSOLUTE MAN 0.20 K/mm3 (0.84-5.20); LYMPHOCYTES PERCENT MAN 1 % (21-46); MONOCYTES ABSOLUTE MAN 0.20 K/mm3 (0.16-1.47); MONOCYTES PERCENT MAN 1 % (4-13); MYELOCYTE ABSOLUTE MAN 0.20 K/mm3 (0.00-0.00); MYELOCYTE PERCENT MAN 1 % (0-0); NEUTROPHILS ABSOLUTE MAN 20.04 K/mm3 (1.96-9.15); SEG NEUTROPHILS PERCENT MAN 89 % (41-73)
[2025-11-06 03:44] LABS: Alanine Aminotransfer (ALT/SGP 31.0 U/L (12-78); Albumin, Blood 3.6 g/dL (3.4-5.0); Albumin/Globulin Ratio 0.8 (0.8-1.8); Anion Gap 16.0 mmol/L (3-11); Aspartate Aminotrans (AST/SGOT 21.0 U/L (12-37); Bilirubin, Total 0.3 mg/dL (0.1-1.0); Blood Urea Nitrogen 86.0 mg/dL (8-24); CO2, Blood 20.0 mmol/L (21-32); Calcium, Blood 9.4 mg/dL (8.5-10.1); Chloride, Blood 101.0 mmol/L (98-108); Creatinine, Blood 11.6 mg/dL (0.40-1.00); Globulin, Blood 4.3 g/dL (2.2-4.0); Glucose, Blood 170.0 mg/dL (70-99); Potassium, Blood 4.4 mmol/L (3.5-5.5); Sodium, Blood 133.0 mmol/L (136-145); Total Protein, Blood 7.9 g/dL (6.4-8.2)
[2025-11-06] MEDS ORDERED: Metoclopramide HCl 5MG / ML 2ML Vial IV ONE (03:45)
[2025-11-06] MEDS ORDERED: EPOGEN2000 UNIT/ IJ (03:53)
[2025-11-06] MEDS ORDERED: FLU VACC TS2025-26(6MOS UP)/PF 45 MCG/0.5 ML SYRINGE IM SCH (05:10)
[2025-11-06] MEDS ORDERED: Metoclopramide HCl 5MG / ML 2ML Vial IV PRN (05:30)
--- NOTE | 2025-11-06 07:55 | NUR ---
PATIENT ARRIVED TO UNIT VIA WHEELCHAIR. SELF-TRANSFERRED TO BED AND IMMEDIATELY BEGAN VOMITING 500mL EMESIS. REPORTS NOT HAVING DRANK THAT MUCH. PROVIDED c NEW GOWN, WATER, MOUTHWASH AND NEW EMESIS BAG.
[2025-11-06 08:00] VITALS: BP 146/114
[2025-11-06 08:47] LABS: Source, Urine Clean Catch
[2025-11-06 09:02] LABS: Bilirubin, Urine Neg (Neg); Color, Urine Yellow (P-Yellow); Glucose Qualitative, Urine Neg (Neg); Ketones, Urine Neg (Neg); Leukocyte Esterase, Urine Neg (Neg); Protein, Urine 3+ (Neg); Specific Gravity, Urine 1.020 (1.003-1.022); Urobilinogen, Urine NORM (Normal)
[2025-11-06 09:09] LABS: White Blood Cells, Urine 0-2 /hpf (0-5)
[2025-11-06 12:52] LABS: Automated BF WBC Count 4.013 K/mm3 (0-999)
[2025-11-06] MEDS ORDERED: Piperacillin/Tazobactam Sod 2.25 GM in NS 50 ML IV SCH (13:00)
[2025-11-06 13:47] LABS: RBC Count, Body Fluid 953 /mm3 (0-0)
[2025-11-06 13:50] LABS: Lymphocytes, Fluid 6.0 % (0.0-18.0); Monocytes/Mononuclear, Fluid 40.0 % (0.0-50.0); Neutrophils, Fluid 52.0 % (0.0-25.0); Other Cells, Fluid 2.0 % (0.0-0.0); Total Cell Count, Body Fluid 100
[2025-11-06 13:51] LABS: Color, Body Fluid L Yellow (None-Yellow)
[2025-11-06 19:27] VITALS: BP 119/81
--- NOTE | 2025-11-06 19:27 | NUR ---
END OF SHIFT SUMMARY: A&Ox4. PLEASANT AND COOPERATIVE WITH CARE. CALLS APPROPRIATELY AND IS ABLE TO ADVOCATE NEEDS EFFECTIVELY. VSS. BREATHING EVEN AND UNLABORED c RA. CONTINENT OF BOWEL AND BLADDER; LBM TODAY. TOLERATING DIET FULL LIQUID DIET NOW THAT NAUSEA/VOMITING HAS SUBSIDED. PD CATHETER LEFT/MIDDLE ABD PATENT. PD c VANCO LAVAGE BEING COMPLETED BY DIALYSIS NURSE. AMBULATES INDEPENDENTLY. MEDS WHOLE c FLUIDS. PERITONEAL FLUID CLOUDY AND CULTURED. COPY OF MED REC FROM [facility] CONFIRMED c PATIENT. MEDICATED c APAP FOR C/O HEADACHE. METOCLOPRAMIDE ADMINISTERED x2 AND HELPED SUBSITE N/V. BED IN LOWEST POSITION, CALL LIGHT WITHIN REACH, ALL NEEDS MET. REPORT TO ONCOMING NURSE.
[2025-11-06] MEDS ORDERED: FURO80 PO (19:39)
[2025-11-06] MEDS ORDERED: CEPH500 PO (19:41)
[2025-11-06] MEDS ORDERED: CRAN-MAX500 MG PO (19:45)
[2025-11-06] MEDS ORDERED: NYSTATIN100000 U13 MT (19:46)
[2025-11-06] MEDS ORDERED: GENT15TO TOP (19:46)
[2025-11-06] MEDS ORDERED: OMEP20ER PO (19:46)
[2025-11-06] MEDS ORDERED: NS 250 ML IV PRN (21:30)
--- NOTE | 2025-11-06 21:46 | NUR ---
Collected PD effluent sample sent to lab for analysis approx at 12noon and manual PD exchange performed approx at 1545 per provider order using 2L dialysate with Vancomycin added by pharmacy. Solution instilled, 4-hour dwell initiated. Patient monitored throughout dwell. No complaints or concerns voiced; abdomen soft and non-distended. Effluent after dwell noted to be yellow and cloudy in appearance. Total output: 1,631mL. Physician notified.
--- NOTE | 2025-11-06 22:01 | NUR ---
CCPD performed at bedside per physician's orders. PD exit site cleansed aseptically with ExSept solution; site dry and no dressing noted, no redness, drainage or pain noted. Connector site cleansed with Alcavis per protocol. Treatment initiated approx at 2130 with no issues.
[2025-11-07 04:12] VITALS: BP 100/64
--- NOTE | 2025-11-07 05:22 | NUR ---
SHIFT SUMMARY: PT AOX4, IND/ SBA IN THE ROOM DUE TO LINES. PLEASANT AND COOPERATIVE IN CARE. CALLS APPROPRAITELY AND ABLE TO MAKE NEEDS KNOWN. RECIEVED DIALYSIS THIS PM. TOLERATED WELL. GOOD PO INTAKE. COMPLAINS OF LIQUID STOOLS WHICH HAVE PROVEN DIFFICULT TO MEASURE. PT TOLERATING MEDICATION WELL. NO ACUTE OVERNIGHT EVENTS. PT IN BED RESTING, BED IN LOWEST POSITION, CALL LIGHT IN REACH. CONTINUING CARE.
[2025-11-07 05:54] LABS: BASOPHILS ABSOLUTE AUTO 0.06 K/mm3 (0.00-0.23); BASOPHILS PERCENT AUTO 0 % (0-2); EOSINOPHILS ABSOLUTE AUTO 0.21 K/mm3 (0.00-0.68); EOSINOPHILS PERCENT AUTO 2 % (0-6); Hematocrit 39.3 % (33.0-51.0); Hemoglobin 12.5 g/dL (11.5-16.0); IMMATURE GRAN ABSOLUTE AUTO 0.18 K/mm3 (0.00-0.10); IMMATURE GRAN PERCENT AUTO 1 % (0-1); LYMPHOCYTES ABSOLUTE AUTO 0.86 K/mm3 (0.84-5.20); LYMPHOCYTES PERCENT AUTO 6 % (21-46); MONOCYTES ABSOLUTE AUTO 1.09 K/mm3 (0.16-1.47); MONOCYTES PERCENT AUTO 8 % (4-13); Mean Corpuscular HGB Conc 31.8 g/dL (31.5-36.5); Mean Corpuscular Volume 98 fL (80-100); NEUTROPHILS ABSOLUTE AUTO 11.49 K/mm3 (1.96-9.15); NEUTROPHILS PERCENT AUTO 83 % (41-73); NRBC ABSOLUTE 0.00 K/mm3 (0.00-0.02); NRBC Auto 0.0 /100 WBC (0.0-0.2); Platelet Count 387 K/mm3 (150-400); RDW Coefficient Variation 15.0 % (11.7-14.2); RDW Standard Deviation 53.5 fL (35.1-46.3)
[2025-11-07 06:43] LABS: Magnesium, Blood 2.1 mg/dL (1.6-2.4)
[2025-11-07 06:45] LABS: Alanine Aminotransfer (ALT/SGP 72.0 U/L (12-78); Albumin, Blood 3.6 g/dL (3.4-5.0); Albumin/Globulin Ratio 0.9 (0.8-1.8); Anion Gap 17.0 mmol/L (3-11); Aspartate Aminotrans (AST/SGOT 53.0 U/L (12-37); Bilirubin, Total 0.5 mg/dL (0.1-1.0); Blood Urea Nitrogen 81.0 mg/dL (8-24); CO2, Blood 21.0 mmol/L (21-32); Calcium, Blood 9.5 mg/dL (8.5-10.1); Chloride, Blood 100.0 mmol/L (98-108); Creatinine, Blood 11.7 mg/dL (0.40-1.00); Globulin, Blood 3.9 g/dL (2.2-4.0); Glucose, Blood 114.0 mg/dL (70-99); Potassium, Blood 3.5 mmol/L (3.5-5.5); Sodium, Blood 134.0 mmol/L (136-145); Total Protein, Blood 7.5 g/dL (6.4-8.2)
[2025-11-07 07:41] VITALS: BP 89/54
--- NOTE | 2025-11-07 08:10 | NUR ---
NOTIFIED DR. NAPOLES AT AT 0805 OF LOW B/P OF 89/54 PT WAS JUST BEING TAKEN OF PERITONEAL DIALYSIS. NO COMPLAINTS OF DIZZINESS/LIGHTHEADEDNESS. DR. NAPOLES RECOMMENDED PT DRINK PO FLUIDS AND RECHECK B/P. SHE WOULD ORDER IV 500 BOLUS IF BLOD PRESSURE DOESNT IMPROVE.
[2025-11-07 08:11] VITALS: BP 109/66
--- NOTE | 2025-11-07 08:36 | NUR ---
CCPD treatment completed approx at 0730 without alarms or complications. Patient tolerated procedure well. Effluent yellow and slightly cloudy in appearance markedly better than first manual drain. No fibrin stands observed. Total UF: 1175mL Avg. Dwell: 1:18 Lost Dwell: 0:36 I-drain: 27mL VSS, patient verbalized feeling better after the tx. Handed report to WINTER Frausto. Time in room: 30mins
[2025-11-07 11:23] VITALS: BP 98/65
[2025-11-07 11:25] VITALS: BP 101/65
[2025-11-07 15:08] LABS: C DIFFICILE DNA NEGATIVE (Negative)
[2025-11-07 15:27] VITALS: BP 97/66
--- NOTE | 2025-11-07 16:47 | NUR ---
PD treatment initiated but subsequently cancelled when Dr. Campos evaluated patient at bedside and confirmed discharge. PD treatment terminated as ordered. Patient stable.
[2025-11-07] MEDS ORDERED: CIPR250 PO (17:26)
--- NOTE | 2025-11-07 18:04 | NUR ---
DISCHARGE NOTE PT EDUATED ON DISCHARGE PACKET AND INSTRUCTIONS. IV REMOVED. ONE NEW PRESCRIPTION FAXED TO [facility]. PT VERBALIZED UNDERSTANDING OF DISCHARGE INSTRUCTIONS AND FOLLOW UP APPT DATE ON 11/[address] GAUTAM. NO QUESTIONS OR CONCERNS PRIOR TO DC. ESCORTED DOWN VIA WHEELCHAIR TO PT RIDE.
== END 2025-11-07 17:52 | disposition home or self-care (01) | DRG 919 ==
LOC: ER 02:16 → ERHOLD 05:06 → MEDS 07:49
PROVIDERS: Family Medicine; Hospitalist; Student in an Organized Health Care Education/Training Program; ADMIT Student in an Organized Health Care Education/Training Program
PROC: 5A1D90Z Performance of Urinary Filtration, Continuous, Greater than 18 hours Per Day (ICD-10-PCS; principal; 2025-11-06)
PROC: 3E03329 Introduction of Other Anti-infective into Peripheral Vein, Percutaneous Approach (ICD-10-PCS; 2025-11-06)
DX: T85.71XA Infection and inflammatory reaction due to peritoneal dialysis catheter, initial encounter (principal); A41.9 Sepsis, unspecified organism; K65.9 Peritonitis, unspecified; N18.6 End stage renal disease; M31.0 Hypersensitivity angiitis; N25.81 Secondary hyperparathyroidism of renal origin; I10 Essential (primary) hypertension; D63.1 Anemia in chronic kidney disease; I95.9 Hypotension, unspecified; E86.0 Dehydration; Z99.2 Dependence on renal dialysis; Z88.8 Allergy status to other drugs, medicaments and biological substances; Z90.49 Acquired absence of other specified parts of digestive tract; Z86.19 Personal history of other infectious and parasitic diseases; Z79.899 Other long term (current) drug therapy; Z79.890 Hormone replacement therapy
CPT/HCPCS: 36415; 80053; 81001; 83690; 83735; 85025; 87493; 89051; 96374; 99285-25; A9270; J2543; J2765; J3373; J7050

== ENCOUNTER → 2025-11-09 | Outpatient (CLI) | payer MEDICARE, OTHER ==
[~2025-11-09] MED LIST changes: +CEPH500 PO; +CIPR250 PO; +CRAN-MAX500 MG PO; +EPOGEN2000 UNIT/ IJ; +EUTHYROX175 MC1 PO; +FURO80 PO; +GENT15TO TOP; +LISI20 PO; +NEURONTIN300 MG PO; +NYSTATIN100000 U13 MT; +OMEP20ER PO; +TOPI25 PO; +XPHOZAH PO; +ZEPBOUND2.5 MG/0.5 SQ
[2025-11-09 13:00] LABS: Automated BF WBC Count 0.161 K/mm3 (0-999)
[2025-11-09 13:11] LABS: Vancomycin, Random 16.0 ug/mL
[2025-11-09 13:33] LABS: RBC Count, Body Fluid 1 /mm3 (0-0)
[2025-11-09 13:39] LABS: Color, Body Fluid No color (None-Yellow); Eosinophils, Fluid 2.0 % (0.0-10.0); Lymphocytes, Fluid 25.0 % (0.0-18.0); Monocytes/Mononuclear, Fluid 43.0 % (0.0-50.0); Neutrophils, Fluid 29.0 % (0.0-25.0); Total Cell Count, Body Fluid 100
== END ==
LOC: LAB 12:00 → LAB SHORT 12:00
PROVIDERS: Hospitalist
DX: N18.6 End stage renal disease (principal); K65.9 Peritonitis, unspecified
CPT/HCPCS: 80202; 89051